=== PATIENT | female | born 1955 | race Caucasian/White ===

== ENCOUNTER → 2024-01-17 | Outpatient (CLI) | payer MEDICARE ==
[~2024-01-17] MED LIST: BREZTRI AEROS10.7 GM IH; KLONOPIN 0.5MG0.5 MG PO; LEXAPRO20 MG PO; LIPITOR 40MG TA40 MG PO; PROAIR HFA0.09 MG/AC IH; SINGULAIR 110 MG/TAB PO
== END ==
LOC: COL.RAD 14:49
DX: Z12.2 Encounter for screening for malignant neoplasm of respiratory organs (principal); J43.9 Emphysema, unspecified; R91.8 Other nonspecific abnormal finding of lung field; Z87.891 Personal history of nicotine dependence